=== PATIENT | male | born 1985 | race Caucasian/White ===

== ENCOUNTER 2017-04-06 20:16 | Emergency (ER) | payer OTHER ==
[~2017-04-06] VITALS: Ht 180.3 cm; Wt 104.3 kg
[2017-04-06 21:01] VITALS: BP 138/89
[2017-04-06] MEDS ORDERED: ACETAMINOPHEN EXTRA STRENGTH 500 MG TAB ONE (21:15)
--- NOTE | 2017-04-06 22:20 | NUR ---
PATIENT LEFT WITHOUT BEING SEEN BY DR. WISE. NO FURTHER CARE PROVIDED FOR PATIENT.
== END 2017-04-06 22:20 | disposition left against medical advice (07) ==
LOC: MED 20:36
DX: R50.9 Fever, unspecified (principal); Z53.21 Procedure and treatment not carried out due to patient leaving prior to being seen by health care provider